=== PATIENT | male | born 2000 | race Caucasian/White ===

== ENCOUNTER → 2020-01-20 | Outpatient (CLI) | payer BC, SELFPAY ==
[2020-01-20 13:45] VITALS: BMI 25.4
== END | disposition home or self-care (01) ==
LOC: LABSPEC 15:21
PROVIDERS: Referring Provider Nurse Practitioner Family; Visit Provider Nurse Practitioner Family
DX: U07.1 COVID-19 (principal)
CPT/HCPCS: 87635; U0003